=== PATIENT | female | born 1935 | race Caucasian/White ===

== ENCOUNTER 2017-05-07 06:33 | Day surgery (SDC) | payer MEDICARE, BC ==
[2017-05-07] MEDS ORDERED: Bupivacaine 0.5% 50 ML MDV ONE (06:49)
[2017-05-07] MEDS ORDERED: ceFAZolin 1 GM in Premix Bag 1 BAG IV ONE (07:00)
[2017-05-07] MEDS ORDERED: Lactated Ringers 1,000 ML IV SCH (07:00)
[2017-05-07] MEDS ORDERED: fentaNYL 100 MCG/2 ML SDV ONE (07:08)
[2017-05-07] MEDS ORDERED: Propofol 200 MG/20 ML SDV ONE (07:08)
[2017-05-07] MEDS ORDERED: Bupivacaine 0.25% 10 ML SDV ONE (07:42)
[2017-05-07] MEDS ORDERED: Bupivacaine 0.25% 10 ML SDV INJECT ONE (07:57)
[2017-05-07 09:07] VITALS: BP 167/77
--- NOTE | 2017-05-07 13:58 | OR ---
DATE OF PROCEDURE: 05/07/2017 PREOPERATIVE DIAGNOSIS: Right carpal tunnel. POSTOPERATIVE DIAGNOSIS: Right carpal tunnel. PROCEDURE PERFORMED: Release right transverse carpal ligament. ESTIMATED BLOOD LOSS: Minimal. COMPLICATION: No complication. INDICATIONS: Gail is a healthy 81-year-old, had been having some symptoms of tingling, numbness, burning sensation, at the territory of the median nerve of the right wrist. She had an EMG done which showed severe carpal tunnel on the right side. Because it was bothersome on a daily basis, we decided to proceed with surgery. I discussed with the patient the possible risks, benefits, alternatives, and complications of surgery. The nature of the procedure was explained. All questions were answered. I had informed consent. PROCEDURE IN DETAIL: The patient is brought to the OR. I did my markings at the right wrist and she did receive antibiotics preop. The TOILET AND LAUNDRY SOAP SUPERVISOR proceeded with slight IV sedation; the patient is put on her back; a tourniquet was applied at the right upper extremity in proximity. Sterile prep and dressing were done in the usual manner at the right wrist. Time-out was taken to identify the correct surgical site and to make sure all instrumentation were present in the room. I did a local block with Marcaine 0.25 plain to subcutaneous tissue down to the transverse carpal ligament of her right wrist. The arm was elevated, tourniquet was raised to 250 mmHg. With a scalpel, an incision is done starting at the wrist crease, going ulnar to the thenar muscle belly about 2.5 cm. Dissection was carried down to the subcutaneous tissue down to the transverse carpal ligament. A slight opening is done proximally with Silvia scissors, making sure not to violate the deep structures, after which a groove adapter is passed underneath the transverse carpal ligament and a gradual release is done. There was a slight inflammation of the nerve but the nerve was intact. The whole site was washed with saline and the skin was closed with nylon 3-0 simple sutures. A compressive dressing was applied. Tourniquet was released. Blood loss was minimal. There was no complication. The patient tolerated well the operation and she was taken to the recovery room in good condition. Prateek Florian MD /[id number]
== END 2017-05-07 09:40 | disposition home or self-care (01) ==
LOC: JP.SDS 06:33
PROVIDERS: ATTEND Orthopaedic Surgery
DX: G56.01 Carpal tunnel syndrome, right upper limb (principal); E11.22 Type 2 diabetes mellitus with diabetic chronic kidney disease; I12.9 Hypertensive chronic kidney disease with stage 1 through stage 4 chronic kidney disease, or unspecified chronic kidney disease; N18.3 Chronic kidney disease, stage 3 (moderate); Z88.8 Allergy status to other drugs, medicaments and biological substances; I25.10 Atherosclerotic heart disease of native coronary artery without angina pectoris; E78.5 Hyperlipidemia, unspecified; E03.9 Hypothyroidism, unspecified; Z79.84 Long term (current) use of oral hypoglycemic drugs; Z79.899 Other long term (current) drug therapy; Z79.82 Long term (current) use of aspirin; Z87.891 Personal history of nicotine dependence
CPT/HCPCS: 64721; J0690; J2704; J3010; J7120

== ENCOUNTER 2018-06-26 05:48 | Day surgery (SDC) | payer MEDICARE, BC ==
[~2018-06-26 05:48] MED LIST: Sodium Chloride 0.9% 10 ML Syringe FLUSH PRN
[2018-06-26] MEDS: Sodium Chloride 0.9% 10 ML Syringe FLUSH PRN (06:12)
[2018-06-26 06:24] VITALS: BP 140/70
--- NOTE | 2018-06-26 12:54 | OR ---
DATE OF PROCEDURE: 06/26/2018 POSTOPERATIVE CARE: Postoperative care will be provided mainly at the [address] [place] [address] [facility] in conjunction with [facility]. PREOPERATIVE DIAGNOSIS: Cataract, left eye. POSTOPERATIVE DIAGNOSIS: Cataract, left eye. PROCEDURE: Phacoemulsification with intraocular lens placement, left eye. ANESTHESIA: Topical and intracameral. ESTIMATED BLOOD LOSS: Minimal. COMPLICATIONS: None. PATHOLOGY SPECIMENS: None. SURGICAL FINDINGS: None. INDICATION FOR PROCEDURE: The patient is an 83-year-old female with history of a visually significant cataract in the left eye, which interfered with activities of daily living. This consisted of a nuclear sclerosis cataract. Following careful discussion of the risks, benefits and alternatives to cataract extraction with intraocular lens placement including blindness and , the patient elected to proceed, and informed, written consent was obtained prior to the procedure. DESCRIPTION OF THE PROCEDURE: The patient was previously identified, and a caleb placed above the left eye. All sources, including the patient, indicated that the left eye was the correct eye. The patient was subsequently taken to the operating room where standard monitors were applied. The patient was then prepped and draped in the usual sterile fashion for ophthalmic surgery. Attention was first directed at the 12 o'clock position where a paracentesis port was fashioned. Shugar solution followed by Viscoat was instilled into the eye. Attention was then directed to the 8:30 position where a triplanar incision was made in a near-clear manner using a keratome. A continuous capsulorrhexis was then made using a combination of the cystotome and Utrata forceps. Hydrodissection was achieved using a balanced salt solution, and the lens rotated nicely. Phacoemulsification was then done using a modified xdgusu-jsl-jartopk technique without complication. Phaco time was 13.16 CDE. The remaining cortex was removed using the irrigation/aspiration handpiece. Provisc was then instilled into the eye. A Technis lens, model [id number], at 21.0 Diopters was then placed in the capsular bag using an Fossil injector. The remaining viscoelastic was removed using the irrigation/aspiration forceps. All wounds were then checked and found to be watertight. The lid speculum and drapes were removed. Maxitrol ointment was placed in the patient's left eye, and the eye was shielded. The patient tolerated the procedure well. The patient was instructed to follow up tomorrow. All needle and sponge counts were correct at the end of the procedure. There were no surgical findings. Sophy Lagunas MD /[id number]
== END 2018-06-26 08:10 | disposition home or self-care (01) ==
LOC: JP.SDS 05:48
PROVIDERS: ATTEND Ophthalmology
DX: H25.12 Age-related nuclear cataract, left eye (principal); I25.10 Atherosclerotic heart disease of native coronary artery without angina pectoris; I12.9 Hypertensive chronic kidney disease with stage 1 through stage 4 chronic kidney disease, or unspecified chronic kidney disease; N18.9 Chronic kidney disease, unspecified; E78.00 Pure hypercholesterolemia, unspecified; Z88.8 Allergy status to other drugs, medicaments and biological substances
CPT/HCPCS: V2632

== ENCOUNTER 2018-07-10 05:44 | Day surgery (SDC) | payer MEDICARE, BC ==
[2018-07-10] MEDS ORDERED: Sodium Chloride 0.9% 10 ML Syringe FLUSH ONE (07:00)
[2018-07-10 08:11] VITALS: BP 155/74
--- NOTE | 2018-07-10 08:33 | OR ---
DATE OF PROCEDURE: 07/10/2018 POSTOPERATIVE CARE: Postoperative care will be provided mainly at the [address] [place] [address] [facility] in conjunction with [facility]. PREOPERATIVE DIAGNOSIS: Cataract, right eye. POSTOPERATIVE DIAGNOSIS: Cataract, right eye. PROCEDURE: Phacoemulsification with intraocular lens placement, right eye. ANESTHESIA: Topical and intracameral. ESTIMATED BLOOD LOSS: Minimal. COMPLICATIONS: None. PATHOLOGY SPECIMENS: None. SURGICAL FINDINGS: None. INDICATION FOR PROCEDURE: The patient is an 83-year-old female with history of a visually significant cataract in the right eye, which interfered with activities of daily living. This consisted of a nuclear sclerosis cataract. Following careful discussion of the risks, benefits and alternatives to cataract extraction with intraocular lens placement including blindness and , the patient elected to proceed, and informed, written consent was obtained prior to the procedure. DESCRIPTION OF THE PROCEDURE: The patient was previously identified, and a caleb placed above the right eye. All sources, including the patient, indicated that the right eye was the correct eye. The patient was subsequently taken to the operating room where standard monitors were applied. The patient was then prepped and draped in the usual sterile fashion for ophthalmic surgery. Attention was first directed at the 12 o'clock position where a paracentesis port was fashioned. Shugar solution followed by Viscoat was instilled into the eye. Attention was then directed to the 8:30 position where a triplanar incision was made in a near-clear manner using a keratome. A continuous capsulorrhexis was then made using a combination of the cystotome and Utrata forceps. Hydrodissection was achieved using a balanced salt solution, and the lens rotated nicely. Phacoemulsification was then done using a modified dbmiri-wqi-teiowce technique without complication. Phaco time was 13.02 CDE. The remaining cortex was removed using the irrigation/aspiration handpiece. Provisc was then instilled into the eye. A Technis lens, model [id number], at 21.5 diopters was then placed in the capsular bag using an [place] injector. The remaining viscoelastic was removed using the irrigation/aspiration forceps. All wounds were then checked and found to be watertight. The lid speculum and drapes were removed. Maxitrol ointment was placed in the patient's right eye, and the eye was shielded. The patient tolerated the procedure well. The patient was instructed to follow up tomorrow. All needle and sponge counts were correct at the end of the procedure. Sophy Lagunas MD /[id number]
== END 2018-07-10 08:10 | disposition home or self-care (01) ==
LOC: JP.SDS 05:44
PROVIDERS: ATTEND Ophthalmology
DX: E11.36 Type 2 diabetes mellitus with diabetic cataract (principal); Z88.8 Allergy status to other drugs, medicaments and biological substances
CPT/HCPCS: 66984; V2632

== ENCOUNTER 2019-03-19 06:56 | Day surgery (SDC) | payer MEDICARE, BC ==
[~2019-03-19 06:56] MED LIST changes: +Bupivacaine 0.5% 50 ML MDV ONE; +Lidocaine 1% with EPINEPHrine 1:100,000 50 ML MDV ONE; -Sodium Chloride 0.9% 10 ML Syringe FLUSH PRN
[2019-03-19] MEDS ORDERED: Midazolam 1 MG/ML 2 ML SDV ONE (07:24)
[2019-03-19] MEDS ORDERED: fentaNYL 100 MCG/2 ML SDV ONE (07:24)
[2019-03-19] MEDS ORDERED: Propofol 200 MG/20 ML SDV ONE ×2 (07:24→08:44)
[2019-03-19] MEDS ORDERED: Sodium Chloride 0.9% 1,000 ML IV SCH (07:30)
[2019-03-19] MEDS ORDERED: ceFAZolin 2 GM in Premix Bag 1 BAG IV ONE (08:00)
[2019-03-19] MEDS ORDERED: ceFAZolin 2 GM in Sodium Chloride 0.9% 50 ML IV ONE (08:00)
[2019-03-19] MEDS ORDERED: metroNIDAZOLE/Normal Saline 500 MG in Premix Bag 1 BAG IV ONE (08:00)
[2019-03-19] MEDS ORDERED: Ropivacaine 40 ML, dexAMETHasone 8 MG, EPINEPHrine 0.4 MG, Sodium Chloride 0.9% 37.6 ML NERVRT SCH ×4 (08:15)
[2019-03-19 10:21] VITALS: BP 144/79; PULSE 64
--- NOTE | 2019-03-19 13:45 | OR ---
DATE OF PROCEDURE: 03/19/2019 SURGEON: Bobby Hale MD PROCEDURE: Open inguinal hernia, right, incarcerated, non-strangulated. COMPLICATION: None. ASPNET DEVELOPER: None. ANESTHESIA: MAC/local. RISKS: Risks, benefits, alternatives, and limitations including, but not limited to infection, bleeding, chronic wounds, chronic pain, recurrence, and other risks not listed here were explained, along with cardiovascular and respiratory issues were explained to the patient, who wished to proceed. PROCEDURE IN DETAIL: The patient was placed in supine position. The right inguinal hernia was identified. This was attempted to be reduced, which was unable to be done. A traditional incision was made to the right of the pubic symphysis, approximately 5 cm in size. This was done after anesthetizing with lidocaine. This was then carried down with electrocautery to the external oblique aponeurosis, which was opened with a 15 blade and subsequently with Metzenbaum scissors. Hernia was readily identified. This was mobilized, including a sac, and able to reduce back into the abdomen. An extra-large plug and patch system would then be used to repair the hernia. This was handsewn in interrupted Vicryl sutures. This was stitched in proximity to Juan Jose's ligament. The shelving ligament was also used, and these were sutured approximately over 1 cm. Once the plug was sutured into place, an overlay patch was then sutured in a similar fashion. Obviously, there were no cord structures and that area of the patch defect was closed with Vicryl suture. The external oblique was then closed with 3-0 Vicryl running sutures. Deep tissues were closed with 3-0 Vicryl. The skin was closed with 4-0 Vicryl. Dermabond was applied. The patient tolerated the procedure well. Bobby Hale MD /[id number]
--- NOTE | 2019-03-19 13:48 | OR ---
DATE OF PROCEDURE: 03/19/2019 SURGEON: Bobby Hale MD PROCEDURE: Transversus abdominis plane block bilaterally. COMPLICATIONS: None. HIDES SOAKER: None. RISKS: Risks, benefits, alternatives, and limitations including, but not limited to infection, bleeding, and injury to abdominal structures were explained to the patient who wished to proceed. PROCEDURE IN DETAIL: The patient was placed in a supine position. The right side was then performed first. Using 11 megahertz ultrasound, the transverse plane was identified and the needle was then advanced under direct visualization. Approximately 80% of the solution was injected. The needle was then removed. Dressings were applied. The other side was then performed in a same manner, same fashion, same technique, in the same sequence using the same equipment, except for different needle and syringe. The patient tolerated the procedure well. Bobby Hale MD /[id number]
== END 2019-03-19 10:49 | disposition home or self-care (01) ==
LOC: JP.SDS 06:56
PROVIDERS: ATTEND Surgery
DX: K40.30 Unilateral inguinal hernia, with obstruction, without gangrene, not specified as recurrent (principal); I10 Essential (primary) hypertension; I25.10 Atherosclerotic heart disease of native coronary artery without angina pectoris; E78.5 Hyperlipidemia, unspecified; E03.9 Hypothyroidism, unspecified; E11.22 Type 2 diabetes mellitus with diabetic chronic kidney disease; N18.3 Chronic kidney disease, stage 3 (moderate); H61.23 Impacted cerumen, bilateral; G89.18 Other acute postprocedural pain; Z88.8 Allergy status to other drugs, medicaments and biological substances; Z79.84 Long term (current) use of oral hypoglycemic drugs; Z79.82 Long term (current) use of aspirin; Z79.899 Other long term (current) drug therapy
CPT/HCPCS: 49507; 64488; C1781; J0171; J0690; J1100; J2250; J2704; J2795; J3010; J3490; J7030; J7050

== ENCOUNTER 2019-12-16 14:57 | Emergency (ER) | payer MEDICARE, BC ==
[2019-12-16 15:11] VITALS: BP 123/43; PULSE 63
--- NOTE | 2019-12-16 15:26 | EDM.PDOC ---
<Rhea Quintanilla - Last Filed: 12/16/19 15:20> ED HPI GENERAL MEDICAL PROBLEM - General Chief Complaint: Syncope Stated Complaint: MEDICAL VIA [facility] Time Seen by Provider: 12/16/19 15:20 Source of Information: Reports: Patient, RN, RN Notes Reviewed History Limitations: Reports: No Limitations - History of Present Illness INITIAL COMMENTS - FREE TEXT/NARRATIVE: Patient here with CC of syncopal type event at lunch. Pt had been working in the yard most of the morning and had come in to have a "piece of cake". Pt was working with linda on [employer]. Pt describes the feeling of "diaphoresis and shaking". Pt is a known diabetic with diet control and metformin. Did indicate checked blood glucose this morning but did not recall the number. This has happened a few other time iin the past. No LOC, falls, fever, chills, night sweats, CP, SOB, or changes in gait or mentation. Onset: Today Onset Date: 12/16/19 Onset Time: 12:00 (Lunch ) Duration: Hour(s):, Resolved Prior to Arrival Associated Symptoms: Reports: Syncope - Related Data Allergies Allergy/AdvReac Type Severity Reaction Status Date / Time lisinopril AdvReac Cough Verified 12/16/19 15:02 Home Meds: Home Meds Aspirin [Halfprin] 81 mg PO DAILY 05/04/15 [History] Multivitamin [Multiple Vitamins] 1 tab PO DAILY 05/04/15 [History] [place]-3 Fatty Acids/Fish Oil [[facility] Fish Oil 1,200 mg Softgel] 1,200 mg PO DAILY 05/04/15 [History] Rosuvastatin [Crestor] 20 mg PO DAILY 05/04/15 [History] Vitamin B Complex 1 tab PO DAILY 05/04/15 [History] metFORMIN [Glucophage] 850 mg PO DAILY 05/04/15 [History] Levothyroxine Sodium [Synthroid] 25 mcg PO DAILY 05/06/17 [History] carvediloL [Coreg] 6.25 mg PO BID 05/06/17 [History] Ferrous Sulfate [Ferosul] 325 mg PO BID 06/24/18 [History] Losartan [Cozaar] 50 mg PO DAILY 06/24/18 [History] Tolnaftate [Tinactin] 1 applic TOP DAILY 07/08/18 [History] Nitroglycerin 0.4 mg SL ASDIRECTED 03/18/19 [History] Past Medical History HEENT History: Reports: Cataract, Impaired Vision Cardiovascular History: Reports: High Cholesterol, Hypertension, Stents Gastrointestinal History: Reports: None Genitourinary History: Reports: UTI, Recurrent LIFE SPECIALIST History: Reports: Dysfunctional Uterine Bleeding, Musculoskeletal History: Reports: Arthritis Neurological History: Reports: Migraines Endocrine/Metabolic History: Reports: Diabetes, Type II, Hypothyroidism, Obesity/BMI 30+ Oncologic (Cancer) History: Reports: Other (See Below) Other Oncologic History: kidney - Infectious Disease History Infectious Disease History: Reports: Chicken Pox, Measles - Past Surgical History Head Surgeries/Procedures: Reports: None HEENT Surgical History: Reports: None Cardiovascular Surgical History: Reports: None, Carotid Stents GI Surgical History: Reports: Appendectomy, Colonoscopy Female Surgical History: Reports: Hysterectomy, Oophorectomy, Salpingo- Oophorectomy Endocrine Surgical History: Reports: None Musculoskeletal Surgical History: Reports: Knee Replacement Oncologic Surgical History: Reports: Other (See Below) Other Oncologic Surgeries/Procedures: rt kidney part removed Dermatological Surgical History: Reports: None Social & Family History - Family History Family Medical History: Noncontributory - Tobacco Use Smoking Status *Q: Never Smoker - Caffeine Use Caffeine Use: Reports: Coffee - Recreational Drug Use Recreational Drug Use: No ED ROS GENERAL - Review of Systems Review Of Systems: See Below Constitutional: Reports: No Symptoms HEENT: Reports: No Symptoms Respiratory: Reports: No Symptoms Cardiovascular: Reports: No Symptoms Endocrine: Reports: No Symptoms GI/Abdominal: Reports: No Symptoms : Reports: No Symptoms Musculoskeletal: Reports: No Symptoms Skin: Reports: No Symptoms, Diaphoresis (With event ) Neurological: Reports: Syncope - Physical Exam Exam: See Below Exam Limited By: No Limitations General Appearance: Alert, WD/WN, No Apparent Distress Head Exam: Normocephalic Neck: Normal Inspection Respiratory/Chest: No Respiratory Distress, Lungs Clear, Normal Breath Sounds Cardiovascular: Normal Peripheral Pulses, Regular Rate, Rhythm, No Murmur, No Rub (Female) Exam: Deferred Rectal (Female) Exam: Deferred Neuro Exam (Abbreviated): Alert, Oriented, CN II-XII Intact, Normal Cognition, No Motor/Sensory Deficits, Other (Syncopal symptoms resolved after 5 minutes) Extremities: Normal Inspection Psychiatric: Normal Affect, Normal Mood Skin Exam: Warm, Dry, Intact Departure - Departure Disposition: Home, Self-Care 01 Clinical Impression: Syncope Qualifiers: Syncope type: unspecified Qualified Code(s): R55 - Syncope and collapse - Discharge Information Instructions: Dehydration, Elderly, [id number] Referrals: PCP,None [Primary Care Provider] - Forms: ED Department Discharge Additional Instructions: Follow-up with primary care as needed continue to push fluids as discussed Sepsis Event Note (ED) - Evaluation Sepsis Screening Result: No Definite Risk <OfficerKarri - Last Filed: 12/16/19 16:27> ED ROS GENERAL - Review of Systems Review Of Systems: See Below (Agree with below) - Physical Exam Text/Narrative:: Agree with below Course - Vital Signs Last Recorded V/S: Last Vital Signs Temp 97.8 F 12/16/19 15:06 Pulse 63 12/16/19 15:06 Resp 20 12/16/19 15:06 BP 123/43 L 12/16/19 15:06 Pulse Ox 96 12/16/19 15:06 - Orders/Labs/Meds Labs: Laboratory Tests 12/16/19 12/16/19 12/16/19 Range/Units 15:38 15:39 15:54 WBC 6.9 (4.5-11.0) K/uL RBC 4.10 (3.30-5.50) M/uL Hgb 12.1 (12.0-15.0) g/dL Hct 37.2 (36.0-48.0) % MCV 91 (80-98) fL MCH 30 (27-31) pg MCHC 33 (32-36) % Plt Count 126 L (150-400) K/uL Neut % (Auto) 71 H (36-66) % Lymph % (Auto) 19 L (24-44) % Pender % (Auto) 8 H (2-6) % Eos % (Auto) 3 (2-4) % Baso % (Auto) 0 (0-1) % Sodium 140 (140-148) mmol/L Potassium 4.4 (3.6-5.2) mmol/L Chloride 105 (100-108) mmol/L Carbon Dioxide 26 (21-32) mmol/L Anion Gap 8.8 (5.0-14.0) mmol/L BUN 25 H (7-18) mg/dL Creatinine 1.2 H (0.6-1.0) mg/dL Est Cr Clr Drug Dosing 29.38 mL/min Estimated GFR (MDRD) 43 L (>60) Glucose 214 H (74-106) mg/dL Calcium 9.7 (8.5-10.1) mg/dL Total Bilirubin 0.4 (0.2-1.0) mg/dL AST 22 (15-37) U/L ALT 22 (12-78) U/L Alkaline Phosphatase 60 (46-116) U/L Troponin I < 0.017 (0.000-0.056) ng/mL Total Protein 7.5 (6.4-8.2) g/dL Albumin 3.5 (3.4-5.0) g/dL Globulin 4.0 H (2.3-3.5) g/dL Albumin/Globulin Ratio 0.9 L (1.2-2.2) Urine Color [place] A (YELLOW) Urine Appearance Slightly cloudy A (CLEAR) Urine pH 6.0 (5.0-8.0) Ur Specific [place] >= 1.030 (1.008-1.030) Urine Protein 30 H (NEGATIVE) mg/dL Urine Glucose (UA) Negative (NEGATIVE) mg/dL Urine Ketones Negative (NEGATIVE) mg/dL Urine Occult Blood Trace-intact H (NEGATIVE) Urine Nitrite Negative (NEGATIVE) Urine Bilirubin Negative (NEGATIVE) Urine Urobilinogen 2.0 H (0.2-1.0) EU/dL Ur Leukocyte Esterase Small H (NEGATIVE) Departure - Departure Time of Disposition: 16:26 Condition: Fair Sepsis Event Note (ED) - Focused Exam Vital Signs: Vital Signs Temp Pulse Resp BP Pulse Ox 12/16/19 15:06 97.8 F 63 20 123/43 L 96 - Assessment/Plan Plan: Assessment Acuity = acute Site and laterality = syncopal event Etiology = probably related to blood sugar and poor oral intake leading to intravascular volume depletion Manifestations = none Location of injury = Home Lab values = creatinine elevated 1.2 consistent with acute renal failure stage G3 B specific gravity 1.03 consistent with dehydration CBC unremarkable EKG from EMS services shows first-degree block otherwise no ST elevation or depression troponin was negative Plan She remained asymptomatic while in the emergency department plan is discharged home follow-up primary care as needed Karri Drew MD was personally available for consultation in the ED. I have reviewed the chart and agree with the documentation as recorded by the PLASTIC PRODUCTION MACHINE SETTER Student, including the assessment, treatment plan and disposition. Karri Drew MD personally saw and examined the patient. I have reviewed and agree with the PLASTIC PRODUCTION MACHINE SETTER Student's findings. This note was dictated using [employer] voice recognition software please call with any questions on syntax or grammar.
== END 2019-12-16 17:00 | disposition home or self-care (01) ==
LOC: JP.ED 14:57
DX: R55 Syncope and collapse (principal); E78.00 Pure hypercholesterolemia, unspecified; I10 Essential (primary) hypertension; M19.90 Unspecified osteoarthritis, unspecified site; G43.909 Migraine, unspecified, not intractable, without status migrainosus; E11.9 Type 2 diabetes mellitus without complications; E03.9 Hypothyroidism, unspecified; E66.9 Obesity, unspecified; Z90.89 Acquired absence of other organs; Z90.710 Acquired absence of both cervix and uterus; Z88.8 Allergy status to other drugs, medicaments and biological substances; Z79.82 Long term (current) use of aspirin; Z79.899 Other long term (current) drug therapy; Z68.30 Body mass index [BMI] 30.0-30.9, adult
CPT/HCPCS: 36415; 80053; 81003; 84484; 85025; 99283; 99284

== ENCOUNTER 2021-05-20 07:38 | Emergency (ER) | payer MEDICARE, BC ==
[2021-05-20 07:49] VITALS: BP 120/58; PULSE 85
== END 2021-05-20 09:47 | disposition home or self-care (01) ==
LOC: JP.ED 07:38
DX: R55 Syncope and collapse (principal); E78.00 Pure hypercholesterolemia, unspecified; I10 Essential (primary) hypertension; I25.2 Old myocardial infarction; E11.9 Type 2 diabetes mellitus without complications; E03.9 Hypothyroidism, unspecified; E66.9 Obesity, unspecified; Z68.30 Body mass index [BMI] 30.0-30.9, adult; Z87.891 Personal history of nicotine dependence; Z95.5 Presence of coronary angioplasty implant and graft; Z88.8 Allergy status to other drugs, medicaments and biological substances; Z79.82 Long term (current) use of aspirin; Z79.84 Long term (current) use of oral hypoglycemic drugs; Z79.899 Other long term (current) drug therapy
CPT/HCPCS: 36415; 80053; 81001; 82150; 84484; 85025; 85379; 87086; 87088; 87186; 93005; 93010; 99283; 99284-25

== ENCOUNTER 2021-07-09 14:18 | Emergency (ER) | payer MEDICARE, BC ==
[2021-07-09 14:36] VITALS: BP 130/57; PULSE 77
== END 2021-07-09 16:06 | disposition home or self-care (01) ==
LOC: JP.ED 14:18
DX: S00.03XA Contusion of scalp, initial encounter (principal); R07.89 Other chest pain; I10 Essential (primary) hypertension; E78.00 Pure hypercholesterolemia, unspecified; Z79.899 Other long term (current) drug therapy; Z79.82 Long term (current) use of aspirin; Z79.01 Long term (current) use of anticoagulants; Z88.8 Allergy status to other drugs, medicaments and biological substances; W01.0XXA Fall on same level from slipping, tripping and stumbling without subsequent striking against object, initial encounter
CPT/HCPCS: 36415; 70450; 71101-26-RT; 71101-RT; 85610; 99282; 99284-25

== ENCOUNTER 2022-02-15 08:19 | Emergency (ER) | payer MEDICARE, BC ==
[2022-02-15 08:36] VITALS: BP 126/57; PULSE 67
== END 2022-02-15 10:08 | disposition home or self-care (01) ==
LOC: JP.ED 08:19
DX: M54.10 Radiculopathy, site unspecified (principal); E11.9 Type 2 diabetes mellitus without complications; I10 Essential (primary) hypertension; E66.9 Obesity, unspecified; Z68.25 Body mass index [BMI] 25.0-25.9, adult; Z87.891 Personal history of nicotine dependence; Z79.899 Other long term (current) drug therapy; Z90.49 Acquired absence of other specified parts of digestive tract; Z90.710 Acquired absence of both cervix and uterus
CPT/HCPCS: 99283

== ENCOUNTER 2022-02-18 15:35 | Inpatient (IN) | payer MEDICARE, BC ==
[2022-02-18] MEDS ORDERED: Ondansetron 4 MG Tab.DIS PO ONE (16:09)
[2022-02-18] MEDS ORDERED: HYDROmorphone 0.5 MG/0.5 ML Syringe IM ONE (17:18)
[2022-02-18] MEDS ORDERED: Sodium Chloride 0.9% 500 ML IV ONE (17:50)
[2022-02-18] MEDS ORDERED: Sodium Chloride 0.9% 10 ML Syringe FLUSH PRN (17:50)
[2022-02-18] MEDS ORDERED: Prochlorperazine 10 MG/2 ML SDV IVPUSH ONE (18:35)
[2022-02-18] MEDS ORDERED: Magnesium Hydroxide 400 MG/5 ML Susp 30 ML Cup PO PRN (20:46)
[2022-02-18] MEDS ORDERED: Ondansetron 4 MG Tab.DIS PO PRN (20:46)
[2022-02-18] MEDS ORDERED: Ondansetron 4 MG/2 ML SDV IV PRN (20:46)
[2022-02-18] MEDS: Sodium Chloride 0.9% 1,000 ML IV SCH (21:07)
[2022-02-18] MEDS: Lactobacillus Rhamnosus GG (Probiotic) Cap PO SCH (21:37)
[2022-02-18] MEDS: Apixaban 2.5 MG Tab PO SCH (21:37)
[2022-02-18] MEDS: Melatonin 3 MG Tab PO SCH (21:37)
[2022-02-18] MEDS: Acetaminophen 325 MG Tab PO SCH (21:37)
[2022-02-18] MEDS: Gabapentin 100 MG Cap PO SCH (21:39)
[2022-02-18] MEDS: cefTRIAXone 1 GM in Sodium Chloride 0.9% 50 ML IV SCH (21:39)
[2022-02-19] MEDS: Sodium Chloride 0.9% 1,000 ML IV SCH (07:28)
[2022-02-19] MEDS: Insulin Lispro 100 Unit/ML 3 ML KwikPen SUBCUT SCH ×4 (08:21→21:11)
[2022-02-19] MEDS: Levothyroxine 25 MCG Tab PO SCH (08:23)
[2022-02-19] MEDS: Carvedilol 3.125 MG Tab PO SCH ×2 (08:56→20:57)
[2022-02-19] MEDS: Gabapentin 100 MG Cap PO SCH ×2 (08:57→20:56)
[2022-02-19] MEDS: Acetaminophen 325 MG Tab PO SCH ×3 (08:57→20:56)
[2022-02-19] MEDS: Trospium 20 MG Tab PO SCH (09:56)
[2022-02-19] MEDS: Lactobacillus Rhamnosus GG (Probiotic) Cap PO SCH ×2 (09:56→20:55)
[2022-02-19] MEDS: Apixaban 2.5 MG Tab PO SCH ×2 (09:56→20:55)
[2022-02-19] MEDS: Digoxin 125 MCG Tab PO SCH (09:57)
[2022-02-19] MEDS ORDERED: Sodium Chloride 0.9% 500 ML IV ONE ×2 (15:30)
[2022-02-19] MEDS: traMADol 50 MG Tab PO PRN (16:13)
[2022-02-19] MEDS: cefTRIAXone 1 GM in Sodium Chloride 0.9% 50 ML IV SCH (20:55)
[2022-02-19] MEDS: Melatonin 3 MG Tab PO SCH (20:56)
[2022-02-20 05:32] LABS: ESTIMATED GFR 20 mL/min (>60)
[2022-02-20] MEDS: Insulin Lispro 100 Unit/ML 3 ML KwikPen SUBCUT SCH ×4 (07:42→21:34)
[2022-02-20] MEDS: Levothyroxine 25 MCG Tab PO SCH (07:43)
[2022-02-20] MEDS: Acetaminophen 325 MG Tab PO SCH ×3 (09:02→21:36)
[2022-02-20] MEDS: Apixaban 2.5 MG Tab PO SCH ×2 (09:03→21:37)
[2022-02-20] MEDS: Gabapentin 100 MG Cap PO SCH ×2 (09:04→21:37)
[2022-02-20] MEDS: Trospium 20 MG Tab PO SCH (09:04)
[2022-02-20] MEDS: Lactobacillus Rhamnosus GG (Probiotic) Cap PO SCH ×2 (09:04→21:37)
[2022-02-20] MEDS: Digoxin 125 MCG Tab PO SCH (09:38)
[2022-02-20] MEDS: Carvedilol 3.125 MG Tab PO SCH ×2 (09:38→21:37)
[2022-02-20] MEDS ORDERED: Sodium Phosphate,Monobasic/Sodium Phosphate,Dibasic Enema 133 ML Bottle RECTAL PRN (12:38)
[2022-02-20] MEDS ORDERED: Bisacodyl 10 MG Supp RECTAL ONE (13:00)
[2022-02-20] MEDS: cefTRIAXone 1 GM in Sodium Chloride 0.9% 50 ML IV SCH (20:41)
[2022-02-20] MEDS: Melatonin 3 MG Tab PO SCH (21:36)
[2022-02-20] MEDS: traMADol 50 MG Tab PO PRN (21:51)
[2022-02-21 05:13] LABS: ESTIMATED GFR 21 mL/min (>60)
[2022-02-21] MEDS: Insulin Lispro 100 Unit/ML 3 ML KwikPen SUBCUT SCH ×4 (07:26→21:28)
[2022-02-21] MEDS: Levothyroxine 25 MCG Tab PO SCH (07:34)
[2022-02-21] MEDS: Carvedilol 3.125 MG Tab PO SCH ×2 (08:38→21:31)
[2022-02-21] MEDS: Lactobacillus Rhamnosus GG (Probiotic) Cap PO SCH ×2 (08:38→21:29)
[2022-02-21] MEDS: Digoxin 125 MCG Tab PO SCH (08:39)
[2022-02-21] MEDS: Acetaminophen 325 MG Tab PO SCH ×3 (08:39→21:33)
[2022-02-21] MEDS: Apixaban 2.5 MG Tab PO SCH ×2 (08:39→21:29)
[2022-02-21] MEDS: Trospium 20 MG Tab PO SCH (08:39)
[2022-02-21] MEDS: Gabapentin 100 MG Cap PO SCH ×2 (08:39→21:32)
[2022-02-21] MEDS: Melatonin 3 MG Tab PO SCH (21:32)
[2022-02-21] MEDS: cefTRIAXone 1 GM in Sodium Chloride 0.9% 50 ML IV SCH (21:44)
[2022-02-22] MEDS: Insulin Lispro 100 Unit/ML 3 ML KwikPen SUBCUT SCH (08:44)
[2022-02-22] MEDS: Levothyroxine 25 MCG Tab PO SCH (08:45)
[2022-02-22] MEDS: Carvedilol 3.125 MG Tab PO SCH (08:45)
[2022-02-22] MEDS: Digoxin 125 MCG Tab PO SCH (08:48)
[2022-02-22] MEDS: Lactobacillus Rhamnosus GG (Probiotic) Cap PO SCH (08:48)
[2022-02-22] MEDS: Apixaban 2.5 MG Tab PO SCH (08:48)
[2022-02-22] MEDS: Trospium 20 MG Tab PO SCH (08:48)
[2022-02-22] MEDS: Gabapentin 100 MG Cap PO SCH (08:48)
[2022-02-22 08:49] VITALS: BP 102/52; PULSE 79
[2022-02-22] MEDS: Acetaminophen 325 MG Tab PO SCH (08:49)
[2022-02-22] MEDS: traMADol 50 MG Tab PO PRN (09:21)
== END 2022-02-22 10:32 | disposition home or self-care (01) | DRG 683 ==
LOC: JP.ED 15:35 → JP.MS 20:00
PROVIDERS: ADMIT Internal Medicine; ATTEND Hospitalist
DX: N17.9 Acute kidney failure, unspecified (principal); E87.1 Hypo-osmolality and hyponatremia; S22.32XA Fracture of one rib, left side, initial encounter for closed fracture; N30.01 Acute cystitis with hematuria; N18.32 Chronic kidney disease, stage 3b; K59.09 Other constipation; E11.22 Type 2 diabetes mellitus with diabetic chronic kidney disease; Z66 Do not resuscitate; Z20.822 Contact with and (suspected) exposure to COVID-19; H54.7 Unspecified visual loss; H91.90 Unspecified hearing loss, unspecified ear; M19.90 Unspecified osteoarthritis, unspecified site; R63.4 Abnormal weight loss; E86.0 Dehydration; W19.XXXA Unspecified fall, initial encounter; M54.16 Radiculopathy, lumbar region; I25.5 Ischemic cardiomyopathy; Z79.01 Long term (current) use of anticoagulants; Z88.8 Allergy status to other drugs, medicaments and biological substances; Z79.890 Hormone replacement therapy; Z79.899 Other long term (current) drug therapy; Z90.710 Acquired absence of both cervix and uterus; Z95.5 Presence of coronary angioplasty implant and graft; Z68.27 Body mass index [BMI] 27.0-27.9, adult; Z85.528 Personal history of other malignant neoplasm of kidney; W18.30XA Fall on same level, unspecified, initial encounter; E11.42 Type 2 diabetes mellitus with diabetic polyneuropathy; I25.10 Atherosclerotic heart disease of native coronary artery without angina pectoris; I12.9 Hypertensive chronic kidney disease with stage 1 through stage 4 chronic kidney disease, or unspecified chronic kidney disease; Z79.84 Long term (current) use of oral hypoglycemic drugs
CPT/HCPCS: 36415; 70450; 71250; 74176; 80048; 80076; 81001; 84443; 84484; 85025; 85610; 87086; 93005; 96361; 96372; 96374; 99285; J0780; J1170; J3490; J7040; Q0162; U0002; 72148; 72148-26; 76377; 80053; 82947; 84439; 85027; 93306; 96125-GO; 97162-GP; 97165-GO; 97530-GP; 97535-GP; A9270-GY; J0696; J1815; J7030

== ENCOUNTER 2022-05-16 08:08 | Observation (INO) | payer MEDICARE, BC ==
[2022-05-16] MEDS ORDERED: Sodium Chloride 0.9% 10 ML Syringe FLUSH PRN ×2 (08:19→16:10)
[2022-05-16] MEDS ORDERED: Lactated Ringers 1,000 ML IV SCH (08:30)
[2022-05-16] MEDS ORDERED: cefTRIAXone 1 GM in Sodium Chloride 0.9% 100 ML IV SCH (09:00)
[2022-05-16 09:46] LABS: ESTIMATED GFR 37 mL/min (>60)
[2022-05-16] MEDS ORDERED: Ketorolac 30 MG/ML SDV IVPUSH ONE (15:04)
[2022-05-16 16:00] LABS: CORONAVIRUS COVID-19 NAA POSITIVE (NEGATIVE)
[2022-05-16] MEDS ORDERED: Acetaminophen 325 MG Tab PO PRN (16:10)
[2022-05-16] MEDS ORDERED: Glucose Gel 15 GM in 37.5 GM Tube PO PRN (16:10)
[2022-05-16] MEDS ORDERED: Haloperidol 1 MG Tab PO PRN (16:10)
[2022-05-16] MEDS ORDERED: 50% Dextrose in Water 50 ML Syringe IV PRN (16:10)
[2022-05-16] MEDS ORDERED: Ondansetron 4 MG/2 ML SDV IV PRN (16:10)
[2022-05-16] MEDS ORDERED: Insulin Lispro 100 Unit/ML 3 ML KwikPen SUBCUT SCH (17:00)
[2022-05-16] MEDS ORDERED: Enoxaparin 40 MG/0.4 ML Syringe SUBCUT SCH (17:00)
[2022-05-16] MEDS: Sodium Chloride 0.9% 1,000 ML IV SCH (19:41)
[2022-05-16] MEDS: Carvedilol 3.125 MG Tab PO SCH (20:06)
[2022-05-16] MEDS: Melatonin 3 MG Tab PO SCH (20:07)
[2022-05-16] MEDS ORDERED: CARVEDILOL 6.25 MG PO SCH (21:00)
[2022-05-16] MEDS ORDERED: Gabapentin 100 MG Cap PO SCH (21:00)
[2022-05-17] MEDS: Sodium Chloride 0.9% 1,000 ML IV SCH (03:54)
[2022-05-17] MEDS: Levothyroxine 25 MCG Tab PO SCH (07:33)
[2022-05-17] MEDS ORDERED: Potassium Chloride 20 MEQ Tab.ER PO ONE (08:00)
[2022-05-17] MEDS: Magnesium Oxide 400 MG Tab PO SCH ×2 (08:38→20:03)
[2022-05-17] MEDS: Carvedilol 3.125 MG Tab PO SCH ×2 (08:39→20:03)
[2022-05-17] MEDS: Losartan 50 MG Tab PO SCH (08:39)
[2022-05-17] MEDS: Magnesium Sulfate/Water 2 GM in Premix Bag 1 BAG IV SCH ×2 (08:40→13:14)
[2022-05-17] MEDS: Digoxin 125 MCG Tab PO SCH (12:45)
[2022-05-17] MEDS ORDERED: Enoxaparin 30 MG/0.3 ML Syringe SUBCUT SCH (17:00)
[2022-05-17] MEDS: Haloperidol Lactate 5 MG/ML SDV IM PRN ×2 (17:01→19:15)
[2022-05-17] MEDS: OLANZapine 5 MG Tab PO SCH (20:04)
[2022-05-17] MEDS: Melatonin 3 MG Tab PO SCH (20:04)
[2022-05-17] MEDS ORDERED: Haloperidol Lactate 5 MG/ML SDV IM PRN (20:47)
[2022-05-18] MEDS: Magnesium Oxide 400 MG Tab PO SCH (09:14)
[2022-05-18] MEDS: Carvedilol 3.125 MG Tab PO SCH ×2 (09:14→23:29)
[2022-05-18] MEDS: Losartan 50 MG Tab PO SCH (09:15)
[2022-05-18] MEDS: Levothyroxine 25 MCG Tab PO SCH (09:15)
[2022-05-18] MEDS ORDERED: Potassium Chloride 20 MEQ Tab.ER PO ONE (09:30)
[2022-05-18] MEDS: Gabapentin 100 MG Cap PO SCH ×3 (10:46→12:41)
[2022-05-18] MEDS: TOLTERODINE TARTRATE 2 MG PO SCH (10:47)
[2022-05-18] MEDS ORDERED: Haloperidol Lactate 5 MG/ML SDV IM PRN (11:40)
[2022-05-18] MEDS: Digoxin 125 MCG Tab PO SCH (12:47)
[2022-05-18] MEDS: Melatonin 3 MG Tab PO SCH (23:28)
[2022-05-18] MEDS: OLANZapine 5 MG Tab PO SCH (23:29)
[2022-05-19] MEDS: Levothyroxine 25 MCG Tab PO SCH (08:27)
[2022-05-19] MEDS: Losartan 50 MG Tab PO SCH (08:28)
[2022-05-19] MEDS: Carvedilol 3.125 MG Tab PO SCH ×2 (08:29→21:06)
[2022-05-19] MEDS: Digoxin 125 MCG Tab PO SCH ×2 (14:17→14:52)
[2022-05-19] MEDS: OLANZapine 5 MG Tab PO SCH (21:05)
[2022-05-19] MEDS: Melatonin 3 MG Tab PO SCH (21:06)
[2022-05-20] MEDS: Levothyroxine 25 MCG Tab PO SCH (08:40)
[2022-05-20] MEDS: Carvedilol 3.125 MG Tab PO SCH ×3 (08:40→23:55)
[2022-05-20] MEDS: Losartan 50 MG Tab PO SCH (08:41)
[2022-05-20] MEDS ORDERED: Sodium Phosphate,Monobasic/Sodium Phosphate,Dibasic Enema 133 ML Bottle RECTAL PRN (10:12)
[2022-05-20] MEDS ORDERED: Polyethylene Glycol 3350 Powder 17 GM Packet PO ONE (10:12)
[2022-05-20] MEDS ORDERED: Bisacodyl 10 MG Supp RECTAL ONE (10:30)
[2022-05-20] MEDS: Digoxin 125 MCG Tab PO SCH (12:11)
[2022-05-20] MEDS: Melatonin 3 MG Tab PO SCH ×2 (21:21→23:55)
[2022-05-20] MEDS: OLANZapine 5 MG Tab PO SCH ×2 (21:23→23:55)
[2022-05-21] MEDS: Carvedilol 3.125 MG Tab PO SCH ×2 (08:06→20:24)
[2022-05-21] MEDS: Losartan 50 MG Tab PO SCH (08:06)
[2022-05-21] MEDS: Levothyroxine 25 MCG Tab PO SCH (08:07)
[2022-05-21] MEDS ORDERED: LORazepam ORAL Concentrate 1MG/0.5ML U/D PO PRN (09:59)
[2022-05-21] MEDS: Digoxin 125 MCG Tab PO SCH (14:37)
[2022-05-21] MEDS: Melatonin 3 MG Tab PO SCH (20:24)
[2022-05-21] MEDS: OLANZapine 5 MG Tab PO SCH (20:24)
[2022-05-22] MEDS: Morphine 10 MG/0.5 ML Oral Syringe PO PRN ×2 (05:39→09:59)
[2022-05-22 07:27] VITALS: BP 180/82
[2022-05-22] MEDS: Carvedilol 3.125 MG Tab PO SCH (08:18)
[2022-05-22] MEDS: Losartan 50 MG Tab PO SCH (08:18)
[2022-05-22] MEDS: Levothyroxine 25 MCG Tab PO SCH (08:18)
[2022-05-22 08:22] VITALS: PULSE 72
== END 2022-05-22 10:05 | disposition hospice, home (50) ==
LOC: JP.ED 08:08 → JP.ICU 14:03 → JP.MS 05-18 09:34
PROVIDERS: ADMIT Hospitalist; ATTEND Internal Medicine
DX: G30.9 Alzheimer's disease, unspecified (principal); U07.1 COVID-19; I13.0 Hypertensive heart and chronic kidney disease with heart failure and stage 1 through stage 4 chronic kidney disease, or unspecified chronic kidney disease; I50.32 Chronic diastolic (congestive) heart failure; E11.22 Type 2 diabetes mellitus with diabetic chronic kidney disease; N18.32 Chronic kidney disease, stage 3b; R53.1 Weakness; I25.10 Atherosclerotic heart disease of native coronary artery without angina pectoris; E78.00 Pure hypercholesterolemia, unspecified; I25.2 Old myocardial infarction; G43.909 Migraine, unspecified, not intractable, without status migrainosus; M19.90 Unspecified osteoarthritis, unspecified site; E03.9 Hypothyroidism, unspecified; E66.9 Obesity, unspecified; E61.1 Iron deficiency; J32.9 Chronic sinusitis, unspecified; Z79.899 Other long term (current) drug therapy; Z79.890 Hormone replacement therapy; Z79.84 Long term (current) use of oral hypoglycemic drugs; Z95.5 Presence of coronary angioplasty implant and graft; Z79.01 Long term (current) use of anticoagulants; Z98.890 Other specified postprocedural states; Z87.891 Personal history of nicotine dependence; Z88.8 Allergy status to other drugs, medicaments and biological substances
CPT/HCPCS: 0241U; 36415; 51702; 70450; 70450-26; 71045; 71045-26; 72192; 72192-26; 73521; 73521-26; 80048; 80053; 80162; 81001; 82550; 82947; 83605; 83735; 84145; 84443; 84484; 85025; 86140; 87040; 96361; 96365; 96366; 96372; 96375; 97110-GP; 97116-GP; 97161-GP; 99223; 99233; 99239; 99285; 99285-25; A9270-GY; G0378; J0696; J1630; J1650; J1885; J3475; J3490; J7030; J7120